=== PATIENT | male | born 1995 | race Asian ===

== ENCOUNTER 2024-07-23 06:40 | Outpatient (REF) | payer OTHER, SELFPAY ==
--- NOTE | ~2024-07-23 | US_ITS ---
EXAMINATION: US ABDOMEN COMPLETE CLINICAL INFORMATION: Gallbladder disease, gallbladder polyp seen on ultrasound performed in [place]. COMPARISON: None available. TECHNIQUE: Real-time imaging of the abdominal viscera. FINDINGS: PANCREAS: Visualized portions are unremarkable. ABDOMINAL AORTA: The proximal, mid, and distal segments are normal in caliber. INFERIOR VENA CAVA: Visualized portions are normal. LIVER: The liver is normal in size. The liver contour is normal. Parenchymal echogenicity is normal. No focal hepatic lesion. There is no intrahepatic biliary duct dilatation seen. GALLBLADDER: The gallbladder is physiologically distended without evidence of stones, sludge, wall thickening or pericholecystic fluid. There is an echogenic mural based nonmobile polyp measuring 4 x 2 x 2 mm in the gallbladder body, only seen on decubitus imaging. Given small size, this does not require follow-up. Negative sonographic Lakhani's sign. COMMON BILE DUCT: Normal in caliber measuring 0.3 cm in diameter. RIGHT KIDNEY: No hydronephrosis. No renal calculi or focal parenchymal lesions. The kidney measures 10.0 cm in maximum dimension. LEFT KIDNEY: No hydronephrosis. No renal calculi or focal parenchymal lesions. The kidney measures 11.1 cm in maximum dimension. SPLEEN: The spleen measures 9.5 cm in maximum dimension. FREE FLUID: None. US/US abdomen complete IMPRESSION: 1. Tiny 4 x 2 x 2 mm gallbladder polyp, not meeting size criteria for follow-up. Gallbladder otherwise normal. 2. The remainder of the examination is normal. Electronically signed by: Jeffrey Auguste MD 07/23/2024 11:54 AM [facility]
== END 2024-07-23 06:41 | disposition home or self-care (01) ==
LOC: HO.UMASIMG 06:40
PROVIDERS: Visit Provider Family Medicine
DX: K82.9 Disease of gallbladder, unspecified (principal)
CPT/HCPCS: 76700

== ENCOUNTER → 2024-07-23 11:10 | Outpatient (BNV) | payer OTHER, SELFPAY | PROVIDERS: Visit Provider Radiology Diagnostic Radiology | DX: K82.9 Disease of gallbladder, unspecified (principal) | CPT/HCPCS: 76700 ==